=== PATIENT | male | born 2000 | race Two or more races ===

== ENCOUNTER → 2025-01-25 | Outpatient (CLI) | payer MEDICAID, SELFPAY ==
--- NOTE | 2025-01-25 16:32 | XR_ITS ---
Examination: Thoracic spine 3 views TECHNIQUE: AP lateral, lateral upper dorsal spine 3 views Exam date and time: January 25, 2025 1644 hours INDICATIONS: Upper back pain beginning 2 weeks ago. FINDINGS: Adequate alignment thoracic vertebral bodies No thoracic fracture Intact odontoid No significant arthritic change IMPRESSION: No fracture or significant arthritic change
--- NOTE | 2025-01-25 16:32 | XR_ITS ---
EXAMINATION: Cervical spine, 5 views Technique: Cervical spine AP, AP odontoid, lateral, bilateral obliques, 5 views Exam date and time: January 25, 2025 1634 hours INDICATIONS: Neck pain beginning 2 weeks ago. FINDINGS: Satisfactory alignment cervical vertebral bodies No cervical fracture Intact odontoid No significant neural foraminal stenosis IMPRESSION: No cervical fracture or significant arthritic change
== END | disposition home or self-care (01) ==
DX: M54.2 Cervicalgia (principal); M54.6 Pain in thoracic spine
CPT/HCPCS: 72050; 72072